=== PATIENT | female | born 1995 | race Caucasian/White ===

== ENCOUNTER 2024-01-17 08:38 | Emergency (ER) | payer BC, OTHER ==
[~2024-01-17] VITALS: Ht 160 cm; Wt 97.1 kg
[2024-01-17 09:16] LABS: Urine Bacteria None Seen /hpf (None Seen); Urine WBC None Seen /hpf (0 - 5)
[2024-01-17 09:26] LABS: Basophils # (auto) 0.1 10 ^3/uL (0-0.2); Eosinophils # (auto) 0.1 10 ^3/uL (0-0.8); Eosinophils % (auto) 1.2 % (0.0-7.0); Hematocrit 36.7 % (36.0-46.0); Hemoglobin 12.4 g/dL (12.2-16.2); Lymphocytes # (auto) 3.1 10 ^3/uL (0.4-5.4); Lymphocytes % (auto) 43.6 % (10.0-50.0); Mean Corpuscular Hemoglobin 28.3 pg (28.0-32.0); Mean Corpuscular Hgb Conc. 33.9 g/dL (32.0-36.0); Mean Corpuscular Volume 83.5 fL (80.0-100.0); Monocytes # (auto) 0.5 10 ^3/uL (0-1.3); Monocytes % (auto) 6.2 % (0.0-12.0); Neutrophils # (auto) 3.5 10 ^3/uL (1.6-8.6); Platelet Count (auto) 314 10^3/uL (140-450); Red Blood Cells 4.39 10^6/uL (4.0-5.20); Red Cell Distribution Width 13.7 % (11.8-14.3); White Blood Cell 7.2 10^3/uL (4.4-10.8)
[2024-01-17 09:42] LABS: Chloride 109 mmol/L (98-107); Potassium 3.4 mmol/L (3.5-5.1); Sodium 141 mmol/L (136-145)
[2024-01-17 09:43] LABS: Anion Gap 7 (5-15); Calcium 9.1 mg/dL (8.7-10.4); Carbon Dioxide 25 mmol/L (20-31)
[2024-01-17 09:48] LABS: Glucose 97 mg/dL (74-106)
[2024-01-17 10:02] LABS: BUN/Creatinine Ratio 8.8 (10.0-20.0); Blood Urea Nitrogen < 5 mg/dL (9-23)
[2024-01-17 10:36] VITALS: BP 154/95; PULSE 77; RESP 18; O2SAT 99
[2024-01-17] MEDS: SODIUM CHLORIDE 0.9% 1,000 ML IV ONE (10:39)
[2024-01-17 11:42] LABS: Urine Blood 3+ /uL (Negative); Urine Clarity Ex.Turbid (Clear); Urine Color Light-Red (Yellow); Urine Mucus FEW (None Seen); Urine Protein, UAD 1+ (Negative); Urine Specific Gravity 1.015 (1.001-1.035); Urine Urobilinogen Normal (Negative); Urine WBC Clumps PRESENT /hpf (None Seen); Urine pH 5.5 (5.0-9.0)
[2024-01-17] MEDS ORDERED: CEPH250C PO (11:48)
== END 2024-01-17 12:07 | disposition home or self-care (01) ==
LOC: ER 08:38
DX: G90.9 Disorder of the autonomic nervous system, unspecified (principal); R10.2 Pelvic and perineal pain; N39.0 Urinary tract infection, site not specified
CPT/HCPCS: 36415; 80048; 81001; 82962; 84702; 85025; 93005

== ENCOUNTER 2024-04-11 13:35 | Emergency (ER) | payer BC ==
[~2024-04-11] VITALS: Ht 160 cm; Wt 81.8 kg
[~2024-04-11 13:35] MED LIST: CEPH250C PO
[2024-04-11 15:41] LABS: Urine Bacteria None Seen /hpf (None Seen)
[2024-04-11 15:56] LABS: Urine Blood 1+ /uL (Negative); Urine Clarity Turbid (Clear); Urine Color Yellow (Yellow); Urine Mucus MODERATE (None Seen); Urine Protein, UAD TRACE (Negative); Urine Squamous Epithelial Cell MOD /hpf (<5); Urine Urobilinogen Normal (Negative); Urine WBC 10 /hpf (0 - 5); Urine pH 5.5 (5.0-9.0)
[2024-04-11 16:46] LABS: Basophils # (auto) 0 10 ^3/uL (0-0.2); Basophils % (auto) 0.5 % (0.0-2.0); Eosinophils # (auto) 0 10 ^3/uL (0-0.8); Eosinophils % (auto) 0.4 % (0.0-7.0); Hematocrit 38.8 % (36.0-46.0); Lymphocytes % (auto) 30.4 % (10.0-50.0); Mean Corpuscular Hemoglobin 27.5 pg (28.0-32.0); Mean Corpuscular Hgb Conc. 33.4 g/dL (32.0-36.0); Mean Corpuscular Volume 82.5 fL (80.0-100.0); Monocytes # (auto) 0.5 10 ^3/uL (0-1.3); Monocytes % (auto) 5.1 % (0.0-12.0); Neutrophils # (auto) 6.3 10 ^3/uL (1.6-8.6); Neutrophils % (auto) 63.6 % (37.0-80.0); Platelet Count (auto) 338 10^3/uL (140-450); Red Blood Cells 4.71 10^6/uL (4.0-5.20); Red Cell Distribution Width 14.6 % (11.8-14.3); White Blood Cell 9.8 10^3/uL (4.4-10.8)
[2024-04-11 16:51] LABS: Chloride 106 mmol/L (98-107); Potassium 3.9 mmol/L (3.5-5.1); Sodium 140 mmol/L (136-145)
[2024-04-11 16:52] LABS: Anion Gap 6 (5-15); Carbon Dioxide 28 mmol/L (20-31)
[2024-04-11 16:57] LABS: Blood Urea Nitrogen 9 mg/dL (9-23); Glucose 85 mg/dL (74-106)
[2024-04-11 17:05] LABS: Calcium 10.6 mg/dL (8.7-10.4)
--- NOTE | 2024-04-11 17:34 | ED.PDOC ---
HPI Comments 29Y morbidly obese F presents to ED for chief complaint high blood pressure x today with headache and eye pressure. Pt states systolic BP at work was in the 170s. BP upon ED arrival 163/97 and 156/87. Pt states she is currently 6 weeks and has had 3 miscarriages in the past. No other symptoms reported. Chief Complaint: High Blood Pressure Time Seen by MD: 13:55 Reviewed Notes: Nurses Notes, Medications, Allergies Allergies: Coded Allergies: NO KNOWN ALLERGIES (Unverified , 04/11/24) Home Meds Active Scripts Cephalexin (KEFLEX CAPSULE) 250 Mg Cp, 250 MG PO TID for 5 Days, #20 BOTTLE Prov:AGAPITO ESPINOZA MD 01/17/24 Information Source: Patient Mode of Arrival: Ambulatory Severity: Mild Timing: Hours Duration: Intermittent Prehospital treatment: None Radiation: No Radiation Onset: At Rest Cardiac Risk Factors: None PE Risk Factors: None History of: None Modifying Factors: Nothing Associated Signs and Symptoms: Other (Headache, eye pressure) Past Medical History PAST MEDICAL HISTORY: Denies Past Medical History (Other): Patient states she is currently 5-6 weeks . Surgical History: Denies all surgeries VBA PROGRAMMER History: Spontaneous Family History Family History: Reviewed,noncontributory to illness, No family hx of Cancer, No family hx of DM, No family hx of Heart rosita, No family hx of HTN, No family hx ofKidney rosita, No family hx of Liver rosita, No family hx of Lung rosita, No family hx of Stroke Social History Smoker: Non-Smoker Alcohol: Denies ETOH Use Drugs: Denies Drug Use Lives In: Home Constitutional: denies: chills, diaphoresis, fatigue, fever, malaise, sweats, weakness, others EENTM: reports: others (eye pressure); denies: blurred vision, double vision, ear bleeding, ear discharge, ear drainage, ear pain, ear ringing, eye pain, eye redness, hearing loss, mouth pain, mouth swelling, nasal discharge, nose bleeding, nose congestion, nose pain, photophobia, tearing, throat pain, throat swelling, voice changes Respiratory: denies: cough, hemoptysis, orthopnea, SOB at rest, shortness of breath, SOB with excertion, stridor, wheezing, others Cardiovascular: denies: chest pain, dizzy spells, diaphoresis, Dyspnea on exertion, edema, irregular heart beat, left arm pain, lightheadedness, palpitations, PND, syncope, others Gastrointestinal: denies: abdomen distended, abdominal pain, blood streaked bowels, constipated, diarrhea, dysphagia, difficulty swallowing, hematemesis, melena, nausea, poor appetite, poor fluid intake, rectal bleeding, rectal pain, vomiting, others Genitourinary: reports: ; denies: abnormal vagina bleeding, burning, dyspareunia, dysuria, flank pain, frequency, hematuria, incontinence, pain, vagina discharge, urgency, others Neurological: reports: headache; denies: dizziness, fainting, left sided numbness, left sided weakness, numbness, paresthesia, pre-existing deficit, right sided numbness, right sided weakness, seizure, speech problems, tingling, tremors, weakness, others Musculoskeletal: denies: back pain, gout, joint pain, joint swelling, muscle pain, muscle stiffness, neck pain, others Integumetry: denies: bruises, change in color, change in hair/nails, dryness, laceration, lesions, lumps, rash, wounds, others Allergic/Immunocompromised: denies: Difficulty Healing, Frequent Infections, Hives, Itching, others Hematologic/Lymphatic: denies: anemia, blood clots, easy bleeding, easy bruising, swollen glands, others Endocrine: denies: excessive hunger, excessive sweating, excessive thirst, excessive urination, flushing, intolerance to cold, intolerance to heat, unexplained weight gain, unexplained weight loss, others Psychiatric: denies: anxiety, bipolar disorder, depression, hopeless, panic disorder, schizophrenia, sleepless, suicidal, others All Other Systems: Reviewed and Negative Physical Exam General Appearance: Mild Distress (Moderate distress due to some mild headache and eye pressure concerns.), Obese HEENT: Normal ENT Inspection, Pharynx Normal, TMs Normal, Other (Eye exam was unremarkable. No hyphema noted. PERRLA, EOMI) Neck: Full Range of Motion, Non-Tender, Normal, Normal Inspection Respiratory: Chest Non-Tender, Lungs Clear, No Accessory Muscle Use, No Respiratory Distress, Normal Breath Sounds Cardiovascular: No Edema, No JVD, No Murmur, No Gallop, Normal Peripheral Pulses, Regular Rate/Rhythm Breast Exam: Deferred Gastrointestinal: No Organomegaly, Non Tender, No Pulsatile Mass, Normal Bowel Sounds, Soft Genitalia: Deferred Pelvic: Deferred Rectal: Deferred Extremities: No calf tenderness, Normal capillary refill, Normal inspection, Normal range of motion, Non-tender, No pedal edema Musculoskeletal : Apperance: Normal Neurologic: Alert, No Motor Deficits, Normal Affect, Normal Mood, No Sensory Deficits Cerebellar Function: Normal Reflexes: Normal Skin: Dry, Normal Color, Warm Lymphatic: No Adenopathy Was a procedure done? Was a procedure done?: No CP Differential Dx Differential Diagnosis: Anxiety / Panic Attack, Other (Sepsis, electrolyte abnormality, UTI) Differential Diagnosis: HTN Essential X-Ray, Labs, Meds, VS Vital Signs Date Time Temp Pulse Resp B/P (MAP) Pulse Ox O2 Delivery O2 Flow Rate FiO2 04/11/24 14:37 83 18 156/87 (110) 97 04/11/24 14:37 81 18 97 Room Air 04/11/24 14:35 Room Air* 0 21 04/11/24 13:50 98.4 84 16 163/97 (119) 98 Lab Test 04/11/24 16:17 04/11/24 00:00 Range/Units White Blood Count 9.8 4.4-10.8 10^3/uL Red Blood Count 4.71 4.0-5.20 10^6/uL Hemoglobin 13.0 12.2-16.2 g/dL Hematocrit 38.8 36.0-46.0 % Mean Corpuscular Volume 82.5 80.0-100.0 fL Mean Corpuscular Hemoglobin 27.5 L 28.0-32.0 pg Mean Corpuscular Hemoglobin Concent 33.4 32.0-36.0 g/dL Red Cell Distribution Width 14.6 H 11.8-14.3 % Platelet Count 338 140-450 10^3/uL Mean Platelet Volume 8.7 6.9-10.8 fL Neutrophils (%) (Auto) 63.6 37.0-80.0 % Lymphocytes (%) (Auto) 30.4 10.0-50.0 % Monocytes (%) (Auto) 5.1 0.0-12.0 % Eosinophils (%) (Auto) 0.4 0.0-7.0 % Basophils (%) (Auto) 0.5 0.0-2.0 % Neutrophils # (Auto) 6.3 1.6-8.6 10 ^3/uL Lymphocytes # (Auto) 3.0 0.4-5.4 10 ^3/uL Monocytes # (Auto) 0.5 0-1.3 10 ^3/uL Eosinophils # (Auto) 0 0-0.8 10 ^3/uL Basophils # (Auto) 0 0-0.2 10 ^3/uL Nucleated Red Blood Cells 0.0 % Sodium Level 140 136-145 mmol/L Potassium Level 3.9 3.5-5.1 mmol/L Chloride Level 106 98-107 mmol/L Carbon Dioxide Level 28 20-31 mmol/L Anion Gap 6 5-15 Blood Urea Nitrogen 9 9-23 mg/dL Creatinine 0.69 0.550-1.02 mg/dL Glomerular Filtration Rate Calc 120 >90 mL/min BUN/Creatinine Ratio 13.0 10.0-20.0 Serum Glucose 85 74-106 mg/dL Calcium Level 10.6 H 8.7-10.4 mg/dL Troponin I High Sensitivity < 3 L </=34 ng/L Beta HCG, Quantitative 6.2 H 1.5-4.2 mIU/mL Urine Color Yellow Yellow Urine Clarity Turbid H Clear Urine pH 5.5 5.0-9.0 Urine Specific [place] 1.030 1.001-1.035 Urine Protein Trace H Negative Urine Ketones Trace Negative Urine Blood 1+ H Negative /uL Urine Nitrite Negative Negative Urine Bilirubin Negative Negative Urine Urobilinogen Normal Negative mg/dL Urine Leukocyte Esterase 2+ Negative /uL Urine RBC 3 0 - 4 /hpf Urine WBC 10 0 - 5 /hpf Urine Squamous Epithelial Cells Mod <5 /hpf Urine Bacteria None seen None Seen /hpf Urine Mucus Moderate None Seen Urine Glucose Normal Normal mg/dL X-Ray, Labs, Meds, VS Comment All studies performed the ED were reviewed by me personally. Serum laboratories revealed an HCG at six. It appears the patient is probably experiencing the end of a miscarriage based on gestational age provided by the patient. Patient should follow up in two days for repeat HCG to see if seemed numbers have improved. Patient appears to have a urinary tract infection. Advise utilizing antibiotics as directed until completion. Time of 1ST Reevaluation: 17:47 Reevaluation 1ST: Improved Consultation: PCP, snowboarding instructor Patient Education/Counseling: Diagnosis, Treatment Family Education/Counseling: Diagnosis, Treatment, No Family Present Departure 1 Departure Time of Disposition: 17:47 Impression: Primary Impression: Elevated blood pressure reading Disposition: HOME / SELF CARE / HOMELESS Condition: Stable Additional Instructions: Advised patient utilize antibiotics as directed until completion. Advised patient follow up with the primary care provider for discussions related to possible hypertensive concerns. Patient appears to be either a few days into a or completing a miscarriage. Patient needs to follow up with primary care or emergency department in two days for beta-hCG redrawn. HCG value today was 6. e-Prescriptions Nitrofurantoin Monohydrate Mac (Macrobid) 100 Mg Cap 100 MG PO BID for 5 Days, #10 CAP Prov: LINSEY SAMUELS PAC 04/11/24 Discharged With: Self, Friend Critical Care Note Critical Care Time?: No Stability Stability form required: No Heart Score Heart Score: Heart Score Response (Comments) Value History N/A 0 EKG N/A 0 Age N/A 0 Risk Factors N/A 0 Troponin Normal limit 0 Total 0 I personally scribed for LINSEY SAMUELS PAC ([email or web address]) on 04/11/24 at 17:34. Electronically submitted by Susie Sanchez ([email or web address]). LINSEY SAMUELS PAC Apr 11, 2024 17:34
[2024-04-11] MEDS ORDERED: NITR-87 PO (17:49)
[2024-04-11] MEDS: NITROFURANTOIN 100 mg CAP PO ONE (18:03)
[2024-04-11] MEDS: cloNIDine HCL 0.1 MG TAB PO ONE (18:14)
[2024-04-11] MEDS ORDERED: CLON0.2T PO (18:19)
[2024-04-11 18:45] VITALS: BP 157/87; PULSE 75; RESP 18; O2SAT 98
== END 2024-04-11 18:47 | disposition home or self-care (01) ==
LOC: ER 13:35
DX: O16.1 Unspecified maternal hypertension, first trimester (principal); Z3A.01 Less than 8 weeks gestation of pregnancy; Z98.890 Other specified postprocedural states
CPT/HCPCS: 36415; 80048; 81001; 84484; 84702; 85025

== ENCOUNTER 2024-10-01 23:47 | Observation (INO) | payer BC, OTHER ==
[~2024-10-01] VITALS: Ht 162.6 cm; Wt 97.1 kg
[~2024-10-01 23:47] MED LIST changes: +CLON0.2T PO; +NITR-87 PO
[2024-10-02 01:33] LABS: Urine Protein, UAD Negative (Negative)
[2024-10-02 01:34] LABS: Hematocrit 33.8 % (36.0-46.0); Hemoglobin 11.3 g/dL (12.2-16.2); Mean Corpuscular Hemoglobin 28.2 pg (28.0-32.0); Mean Corpuscular Volume 83.9 fL (80.0-100.0); Nucleated Red Blood Cells % 0.2 %
[2024-10-02 01:42] LABS: INR 0.96 (0.9-1.15); Partial Thromboplastin Time 27.9 SEC (24.5-34.5); Prothrombin Time 10.2 sec (9.3-11.8)
[2024-10-02 01:45] LABS: Alanine Aminotransferase 19 U/L (7-40); Albumin 4.1 g/dL (3.2-4.8); Alkaline Phosphatase 90 U/L (46-116); Anion Gap 9 (5-15); BUN/Creatinine Ratio 14.0 (10.0-20.0); Calcium 9.7 mg/dL (8.7-10.4); Carbon Dioxide 25 mmol/L (20-31); Chloride 106 mmol/L (98-107); Glucose 105 mg/dL (74-106); Potassium 3.5 mmol/L (3.5-5.1); Sodium 140 mmol/L (136-145); Total Protein 6.7 g/dL (5.7-8.2); Uric Acid 4.6 mg/dL (3.1-7.8)
[2024-10-02 01:48] LABS: Bilirubin, Total 0.2 mg/dL (0.2-1.0); Blood Urea Nitrogen 8 mg/dL (9-23)
[2024-10-02 02:23] LABS: Protein, Urine 14.1 mg/dL (1-14)
--- NOTE | 2024-10-02 11:52 | DVHDS2 ---
Physician Discharge Progress N Final Diagnosis: elevated BP without diagnosis of HTN Problems List: (1) Elevated BP without diagnosis of hypertension (2) 24 weeks gestation of Operations or Procedures: Operations or Procedures S: 29yo IUP@24.6wks presents to OB triage from ED with c/o elevated BPs. 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 She noticed swollen legs and feet yesterday and today. Denies UCs/LOF/VB/GUNDERSON/vision changes/RUQ pain. Endorses +FM. PNC with Dr. Meade at [place], uncomplicated thus far. takes PNV and baby aspirin daily. OB hx: SAB x5 O: VSS except elevated BP x1 on arrival NST reactive for GA PO hydrated Laboratory Tests Test 10/02/24 00:55 10/02/24 01:07 Range/Units Urine Color Colorless Yellow Urine Clarity Turbid H Clear Urine pH 6.5 5.0-9.0 Urine Specific [place] 1.018 1.001-1.035 Urine Protein Negative Negative Urine Ketones Negative Negative Urine Blood Negative Negative /uL Urine Nitrite Negative Negative Urine Bilirubin Negative Negative Urine Urobilinogen Normal Negative mg/dL Urine Leukocyte Esterase 3+ Negative /uL Urine RBC 2 0 - 4 /hpf Urine Microscopic WBC 12 H 0-5 /HPF Urine Squamous Epithelial Cells Mod <5 /hpf Urine Bacteria Few H None Seen /hpf Urine Mucus Few None Seen Urine Creatinine 106.11 30.0-125.0 mg/dL Urine Protein/Creatinine Ratio 0.13 Urine Glucose Normal Normal mg/dL Urine Total Protein 14.1 H 1-14 mg/dL White Blood Count 11.4 H 4.4-10.8 10^3/uL Red Blood Count 4.03 4.0-5.20 10^6/uL Hemoglobin 11.3 L 12.2-16.2 g/dL Hematocrit 33.8 L 36.0-46.0 % Mean Corpuscular Volume 83.9 80.0-100.0 fL Mean Corpuscular Hemoglobin 28.2 28.0-32.0 pg Mean Corpuscular Hemoglobin Concent 33.6 32.0-36.0 g/dL Red Cell Distribution Width 13.7 11.8-14.3 % Platelet Count 297 140-450 10^3/uL Mean Platelet Volume 8.9 6.9-10.8 fL Neutrophils (%) (Auto) 68.4 37.0-80.0 % Lymphocytes (%) (Auto) 24.5 10.0-50.0 % Monocytes (%) (Auto) 5.8 0.0-12.0 % Eosinophils (%) (Auto) 0.8 0.0-7.0 % Basophils (%) (Auto) 0.5 0.0-2.0 % Neutrophils # (Auto) 7.8 1.6-8.6 10 ^3/uL Lymphocytes # (Auto) 2.8 0.4-5.4 10 ^3/uL Monocytes # (Auto) 0.7 0-1.3 10 ^3/uL Eosinophils # (Auto) 0.1 0-0.8 10 ^3/uL Basophils # (Auto) 0.1 0-0.2 10 ^3/uL Nucleated Red Blood Cells 0.2 % Prothrombin Time 10.2 9.3-11.8 sec Prothrombin Time INR 0.96 0.9-1.15 Activated Partial Thromboplast Time 27.9 24.5-34.5 SEC Fibrin Degradation Products Pending Sodium Level 140 136-145 mmol/L Potassium Level 3.5 3.5-5.1 mmol/L Chloride Level 106 98-107 mmol/L Carbon Dioxide Level 25 20-31 mmol/L Anion Gap 9 5-15 Blood Urea Nitrogen 8 L 9-23 mg/dL Creatinine 0.57 0.550-1.02 mg/dL Glomerular Filtration Rate Calc 125 >90 mL/min BUN/Creatinine Ratio 14.0 10.0-20.0 Serum Glucose 105 74-106 mg/dL Uric Acid 4.6 3.1-7.8 mg/dL Calcium Level 9.7 8.7-10.4 mg/dL Total Bilirubin 0.2 0.2-1.0 mg/dL Aspartate Amino Transferase (AST) 24 13-40 U/L Alanine Aminotransferase (ALT) 19 7-40 U/L Alkaline Phosphatase 90 46-116 U/L Total Protein 6.7 5.7-8.2 g/dL Albumin 4.1 3.2-4.8 g/dL A: 29yo IUP@24.6wks Elevated BP without diagnosis of HTN P: Dr. Villeda consulted, plan to D/C pt home and f/u with Dr. Meade as scheduled on sunday10/03/24. Drink 1 gallon of water a day. SAB/PTL/PreE precautions reviewed Condition on Discharge: Stable Disposition: Home Discharge Instructions: Diet: Regular Activity: No Restrictions, As Tolerated Medications: SEE MED LIST Follow Up Care: Specialist: f/u with Dr. Meade as scheduled on sunday10/03/24. Discharge Statement: "Patient was advised to return to the ER or call 911 if any headaches, dizziness, shortness of breath, chest pain, abdominal pain, bleeding, fevers, or worsening of medical condition. Patient was counseled about treatment plan, medications, possible side effects, patientverbalized understanding. All questions were answered to the best of my ability. This discharge took greater then 30 minutes in planning, reviewing documentation, counseling the patient, and discussing with other team members." Visit Coding OBGYN Date of Service: Oct 02, 2024 Billing Provider: MITRA MCMILLAN CNM GRINDER OPERATOR Common Visit Codes: 67928-ORJCSBU OBS CARE (HIGH) GRINDER OPERATOR Procedure Codes: 37663-09- NON-STRESS TEST MITRA MCMILLAN CNM Oct 02, 2024 11:52
== END 2024-10-02 03:05 | disposition home or self-care (01) ==
LOC: EDBD 23:47 → LDRP 23:47 → MERGE 23:47
PROVIDERS: ADMIT Obstetrics & Gynecology; ATTEND Obstetrics & Gynecology
DX: O26.892 Other specified pregnancy related conditions, second trimester (principal); R03.0 Elevated blood-pressure reading, without diagnosis of hypertension; M79.89 Other specified soft tissue disorders; Z3A.24 24 weeks gestation of pregnancy; Z86.2 Personal history of diseases of the blood and blood-forming organs and certain disorders involving the immune mechanism
CPT/HCPCS: 36415; 80053; 81001; 81002; 82570; 84156; 84550; 85025; 85362; 85610; 85730; 94760; G0378

== ENCOUNTER 2024-12-29 18:36 | Emergency (ER) | payer BC, OTHER ==
[~2024-12-29] VITALS: Ht 160 cm; Wt 99.6 kg
[2024-12-29] MEDS ORDERED: TETANUS-DIPTH-ACEL PERTUSSIS 0.5ML SYR Tdap IM ONE (19:45)
[2024-12-29 19:58] LABS: Hematocrit 35.8 % (36.0-46.0); Hemoglobin 11.9 g/dL (12.2-16.2); Mean Corpuscular Hemoglobin 27.5 pg (28.0-32.0); Mean Corpuscular Volume 82.6 fL (80.0-100.0); Nucleated Red Blood Cells % 0.1 %
[2024-12-29 20:15] LABS: Alanine Aminotransferase 56 U/L (7-40); Albumin 4.0 g/dL (3.2-4.8); Alkaline Phosphatase 129 U/L (46-116); Anion Gap 11 (5-15); BUN/Creatinine Ratio 12.0 (10.0-20.0); Bilirubin, Total 0.2 mg/dL (0.2-1.0); Blood Urea Nitrogen 9 mg/dL (9-23); Calcium 9.2 mg/dL (8.7-10.4); Carbon Dioxide 28 mmol/L (20-31); Chloride 104 mmol/L (98-107); Glucose 94 mg/dL (74-106); Potassium 3.6 mmol/L (3.5-5.1); Sodium 143 mmol/L (136-145); Total Protein 6.6 g/dL (5.7-8.2)
--- NOTE | 2024-12-29 22:11 | ED.PDOC ---
PAPER DELIVERER HPI Comments Past medical history: Preeclampsia Past surgical history: 1 , Cholecystectomy, Tubal Ligation MEGAN HPI: Poor Historian. 29-year-old female presents to emergency department for evaluation of elevated blood pressure. Patient delivered a baby healthy a 37 weeks gestation due to a preeclampsia. Patient is not on any blood pressure medications. Patient took some losartan 25 mg at 6:00 a.m. this evening. Patient has had a headache at that time that prompted her to check her blood pressure. However her symptoms have resolved headache has resolved. She denies any other acute symptoms. Patient is G8 P 3 5 miscarriages. Her blood pressure at home earlier today was 174/98. Patient delivered a healthy child. REVIEW OF SYSTEMS: CONSTITUTIONAL: Denies acute: fever, diaphoresis, chills, generalized weakness. HEAD: Denies acute: headache, photophobia Eyes: Denies acute: Double vision, vision loss, eye pain, eye discharge. EARS: Denies acute: tinnitus, hearing loss, ear discharge, ear pain, THROAT: Denies acute: sore throat, swelling, difficulty swallowing , pain with swallowing, change in voice. NECK: Denies acute: neck pain, neck swelling, stiff neck. HEART: Denies acute : chest pain, palpitations, LUNGS: Denies acute: SOB, wheezing, cough, hemoptysis ABDOMEN: Denies acute: abdominal pain, Nausea, Vomiting, diarrhea, melena , hematemesis, hematochezia SKIN: Denies acute: rash, redness, lesions, itchiness. EXTREMITIES: Denies acute: calf pain, numbness, tingling, weakness, denies pain in extremity. Denies acute: Low back pain. Neuro: Denies acute: focal neurological deficit, motor or sensory focal neurological deficit, tremors, seizure like activity, confusion, dizziness, change in mental status, loss of bowel or bladder function, cauda equina like symptoms. : Denies acute: dysuria, hematuria, flank pain, increase in urinary frequency. PSYCH: Denies acute: hallucination, suicidal ideation, homicidal ideation. FEMALE: Denies acute: abnormal vaginal bleeding, foul odor, unusual discharge. PHYSICAL EXAM: General: ----no----acute distress, awake and alert. Head: normocephalic, atraumatic. Neck: supple, trachea is midline, no swelling. Throat: Normal phonation. Eyes:, no erythema, no purulent discharge, no proptosis, no icterus. Heart: regular rate, regular rhythm, no significant murmur appreciated. Lungs: no apparent respiratory distress, Able to speak in full sentences. No wheezing, no rhonchi, no crackles. No stridors Clear to auscultation bilaterally. Abdomen: non tender to palpation, non distended, soft, no guarding, no rebound, + bowel sounds. Neuro: Awake, Alert, oriented to name, self, situation, follows commands GCS=15. Speech is normal. Skin: no petechia, no purpura, no cyanosis, non-pale, not jaundice. Lower extremities: --trace bilateral- Pitting edema no deformity, no focal swelling, no calf TTP. Makes eye contact. moves all four extremities. Face: no apparent facial droop. Ambulating in the ED independently. ED COURSE: DISCLAIMER: This medical document was created using an electronic medical record system with voice recognition software and computerized dictation system. Although this document has been carefully reviewed, there might still be some phonetic and typographical errors. Occasional wrong-word or "sound-alike" substitutions may have occurred due to the inherent limitations of voice recognition software. The se areas are purely typographical due to imperfections of the software programs and do not reflect any compromise in the patient's medical care. Please read the chart carefully and recognize, using context, where these substitutions have occurred. Chief Complaint: High Blood Pressure Time Seen by MD: 19:20 Allergies: Coded Allergies: NO KNOWN ALLERGIES (Unverified , 04/11/24) Home Meds Active Scripts Nitrofurantoin Monohydrate Mac (Macrobid) 100 Mg Cap, 100 MG PO BID for 7 Days, #14 CAP Prov:YOSELIN JULIO DO 12/29/24 Labetalol Hcl (Labetalol Hcl) 300 Mg Tab, 1 TAB PO BID for 10 Days, #20 TAB 0 Refills Prov:YOSELIN JULIO DO 12/29/24 Clonidine Hydrochloride (Clonidine Hcl) 0.2 Mg Tab, 1 TAB PO BIDP PRN, #10 TAB 0 Refills Prov:LINSEY SAMUELS PAC 04/11/24 Nitrofurantoin Monohydrate Mac (Macrobid) 100 Mg Cap, 100 MG PO BID for 5 Days, #10 CAP Prov:LINSEY SAMUELS PAC 04/11/24 Cephalexin (KEFLEX CAPSULE) 250 Mg Cp, 250 MG PO TID for 5 Days, #20 BOTTLE Prov:AGAPITO ESPINOZA MD 01/17/24 Information Source: Patient Past Medical History Surgical History: Denies all surgeries VICE PRESIDENT RESEARCH History: Spontaneous 8 Para 3 AB 5 Family History Family History: Reviewed,noncontributory to illness, No family hx of Cancer, No family hx of DM, No family hx of Heart rosita, No family hx of HTN, No family hx ofKidney rosita, No family hx of Liver rosita, No family hx of Lung rosita, No family hx of Stroke Social History Smoker: Non-Smoker Alcohol: Denies ETOH Use Drugs: Denies Drug Use Lives In: Home Was a procedure done? Was a procedure done?: No Differential Diagnosis (VICE PRESIDENT RESEARCH) Comments DDX include renal disease, thyroid disease, electrolyte abnormality, increased salt intake, medications non-compliance, undiagnosed HTN, Hypertensive crisis, hypertensive urgency., drug toxicity. Preeclampsia. X-Ray, Labs, Meds, VS Vital Signs Date Time Temp Pulse Resp B/P (MAP) Pulse Ox O2 Delivery O2 Flow Rate FiO2 12/30/24 03:18 64 16 143/88 (106) 99 12/30/24 02:56 72 152/86 12/30/24 02:39 Room Air* 0 21 12/30/24 02:32 72 152/86 12/30/24 01:32 71 164/86 12/30/24 01:25 65 19 164/86 (112) 100 12/30/24 01:23 66 165/82 12/30/24 00:23 69 165/95 12/30/24 00:00 191/111 (137) 12/30/24 00:00 165/95 (118) 12/29/24 23:06 97.8 76 16 148/93 (111) 98 97.8 12/29/24 22:13 162/112 12/29/24 18:37 99.4 77 18 163/83 97 99.4 Lab Test 12/29/24 21:47 12/29/24 21:30 12/29/24 20:59 12/29/24 19:33 Range/Units Fibrinogen 446 H 177-375 mg/dL Fibrin Degradation Products Pending Troponin I High Sensitivity < 3 L < 3 L < 3 L </=34 ng/L Urine Color Colorless Yellow Urine Clarity Turbid H Clear Urine pH 7.0 5.0-9.0 Urine Specific [place] 1.011 1.001-1.035 Urine Protein Negative Negative Urine Ketones Negative Negative Urine Blood 3+ H Negative /uL Urine Nitrite Negative Negative Urine Bilirubin Negative Negative Urine Urobilinogen Normal Negative mg/dL Urine Leukocyte Esterase 2+ Negative /uL Urine RBC 2 0 - 4 /hpf Urine Microscopic WBC 13 H 0-5 /HPF Urine Squamous Epithelial Cells Few <5 /hpf Urine Bacteria None seen None Seen /hpf Urine Mucus Few None Seen Urine Glucose Normal Normal mg/dL White Blood Count 7.9 4.4-10.8 10^3/uL Red Blood Count 4.33 4.0-5.20 10^6/uL Hemoglobin 11.9 L 12.2-16.2 g/dL Hematocrit 35.8 L 36.0-46.0 % Mean Corpuscular Volume 82.6 80.0-100.0 fL Mean Corpuscular Hemoglobin 27.5 L 28.0-32.0 pg Mean Corpuscular Hemoglobin Concent 33.3 32.0-36.0 g/dL Red Cell Distribution Width 17.8 H 11.8-14.3 % Platelet Count 302 140-450 10^3/uL Mean Platelet Volume 8.4 6.9-10.8 fL Neutrophils (%) (Auto) 58.6 37.0-80.0 % Lymphocytes (%) (Auto) 33.9 10.0-50.0 % Monocytes (%) (Auto) 5.4 0.0-12.0 % Eosinophils (%) (Auto) 1.6 0.0-7.0 % Basophils (%) (Auto) 0.5 0.0-2.0 % Neutrophils # (Auto) 4.6 1.6-8.6 10 ^3/uL Lymphocytes # (Auto) 2.7 0.4-5.4 10 ^3/uL Monocytes # (Auto) 0.4 0-1.3 10 ^3/uL Eosinophils # (Auto) 0.1 0-0.8 10 ^3/uL Basophils # (Auto) 0 0-0.2 10 ^3/uL Nucleated Red Blood Cells 0.1 % Sodium Level 143 136-145 mmol/L Potassium Level 3.6 3.5-5.1 mmol/L Chloride Level 104 98-107 mmol/L Carbon Dioxide Level 28 20-31 mmol/L Anion Gap 11 5-15 Blood Urea Nitrogen 9 9-23 mg/dL Creatinine 0.75 0.550-1.02 mg/dL Glomerular Filtration Rate Calc 110 >90 mL/min BUN/Creatinine Ratio 12.0 10.0-20.0 Serum Glucose 94 74-106 mg/dL Calcium Level 9.2 8.7-10.4 mg/dL Total Bilirubin 0.2 0.2-1.0 mg/dL Aspartate Amino Transferase (AST) 46 H 13-40 U/L Alanine Aminotransferase (ALT) 56 H 7-40 U/L Alkaline Phosphatase 129 H 46-116 U/L B-Type Natriuretic Peptide 88.94 0-100 pg/mL Total Protein 6.6 5.7-8.2 g/dL Albumin 4.0 3.2-4.8 g/dL Current Medications Medications (Trade) Dose Ordered Sig/Roderick Route Start Time Stop Time Status Last Admin Hydralazine HCl (Apresoline Injection) 5 mg ONCE ONCE IV 12/29/24 21:45 12/29/24 21:46 DC 12/29/24 22:13 Labetalol HCl (Labetalol HCl) 5 mg ONCE ONCE IV 12/30/24 00:00 12/30/24 00:01 DC 12/30/24 00:23 Labetalol HCl (Labetalol HCl) 5 mg ONCE ONCE IV 12/30/24 01:30 12/30/24 01:31 DC 12/30/24 01:32 Acetaminophen (Tylenol Tablet) 650 mg ONCE ONCE PO 12/30/24 02:15 12/30/24 02:16 DC 12/30/24 02:20 Labetalol HCl (Labetalol HCl) 10 mg ONCE ONCE IV 12/30/24 02:45 12/30/24 02:46 DC 12/30/24 02:56 Time of 1ST Reevaluation: 19:50 Reevaluation 1ST: Unchanged Time of 2ND Reevaluation: 23:52 (The case was discussed with the [facility] on- call team (HPI, physical exam, labs and diagnostic tests that were available at the time of disposition, ED course, treatment plan) on the phone. They recommend discharging the patient home with labetalol 300mg one pill by mouth b.i.d. and outpatient follow up. ) Patient Education/Counseling: Diagnosis, Treatment, Need For Follow Up Family Education/Counseling: No Family Present Comments MDM: patient presented with the above HPI.---hypertension /preeclampsia---workup was initiated. patient was found with the above mentioned diagnosis. the following medications were ordered: please refer to order lists of meds and tests obtained by myself Dr. Julio. Patient ED course and VS have been stabilized. Patient has been reassessed in the ED and remained in a stable condition. Pertinent incidental findings were discussed with the patient and/or family. Patient/family voices understanding and is agreeable with plan. Patient has been observed in the ED adequate length of time to insure improvement/stability. Escalation of care considered: Consideration of escalation to observation or admission [facility] was consulted they recommended discharging the patient with a labetalol. Patient was given multiple blood pressure medication for blood pressure control . Patient was DISCHARGED home in a stable condition. All the reports of any imaging studies that were ordered by myself were reviewed by myself. Departure 1 Departure Time of Disposition: 23:53 Impression: Primary Impression: Hypertension, condition or complication Additional Impression: Preeclampsia in period Disposition: 01 HOME / SELF CARE / HOMELESS Condition: Stable Additional Instructions: Additional instructions: Please read all instructions provided in this packet carefully. You MUST follow-up with your primary care/family doctor in 1 to 2 days. If you are unable to see your primary care/family doctor, please return to our emergency room for re-assessment and re-evaluation in 1 to 2 days. Return to the emergency room here in our facility or to the nearest [facility] if your symptoms change or worsen. CONSULTATIONS: you MUST Follow-up for consultation as soon as possible with: Dr.-OB Stafford doctor in 1-2 days. You MUST call the consultants office yourself to make an appointment. You may need to arrange that through your insurance and/or your primary/family doctor. If you are unable to see the financial analysis consultant in 1 to 2 days, you must return to our emergency room (or any other ER of your choice) for re-assessment and re- evaluation. Adequate fluid hydration. Although you have been discharged from the Emergency Department, this does not mean that you have a "clean bill of health". No definitive diagnosis for your symptoms has been made today. It is possible that you are in the process of developing a serious illness. This is why you must return to the ED without fail if any new or worsening symptoms develop. Monitoring blood pressure at home at least 3 times a day. Salt restrictions. Leg elevation. Compression stockings. e-Prescriptions Nitrofurantoin Monohydrate Mac (Macrobid) 100 Mg Cap 100 MG PO BID for 7 Days, #14 CAP Prov: YOSELIN JULIO DO 12/29/24 Labetalol Hcl (Labetalol Hcl) 300 Mg Tab 1 TAB PO BID for 10 Days, #20 TAB 0 Refills Prov: YOSELIN JULIO DO 12/29/24 Discharged With: Self Critical Care Note Critical Care Time?: Yes (1 hr-critical care time only) Stability Stability form required: No I personally scribed for YOSELIN JULIO DO ([email or web address]) on 12/29/24 at 22:11. Electronically submitted by Rayo Sanches ([email or web address]). YOSELIN JULIO DO Dec 29, 2024 22:11
[2024-12-29] MEDS: hydrALAZINE HCL 20 MG/ML VL IV ONE (22:13)
[2024-12-29 23:06] VITALS: TEMP 97.8
[2024-12-29 23:17] LABS: Urine Protein, UAD Negative (Negative)
[2024-12-29] MEDS ORDERED: NITR-87 PO (23:55)
[2024-12-29] MEDS ORDERED: LABE300T5 PO (23:55)
[2024-12-30] MEDS: LABETALOL HCL 20 MG/4 ML VL IV ONE ×3 (00:23→02:56)
[2024-12-30] MEDS: ACETAMINOPHEN 325 MG TAB PO ONE (02:20)
[2024-12-30 03:18] VITALS: BP 143/88; PULSE 64; RESP 16; O2SAT 99
== END 2024-12-30 03:20 | disposition home or self-care (01) ==
LOC: ER 18:37
DX: O16.5 Unspecified maternal hypertension, complicating the puerperium (principal); O14.95 Unspecified pre-eclampsia, complicating the puerperium; Z79.899 Other long term (current) drug therapy; Z3A.37 37 weeks gestation of pregnancy
CPT/HCPCS: 36415; 80053; 81001; 83880; 84484; 85025; 85362; 85384; 96374; 96375; 96376; 99284; J0360